=== PATIENT | male | born 1945 | race Caucasian/White ===

== ENCOUNTER 2018-04-05 15:42 | Emergency (ER) | payer MEDICARE, BC ==
--- NOTE | 2018-04-05 16:56 | EDM.PDOC ---
ED HPI GENERAL MEDICAL PROBLEM - General Chief Complaint: ENT Problem Stated Complaint: BLOODY NOSE POST NASAL SURGURY Time Seen by Provider: 04/05/18 16:36 Source of Information: Reports: Patient, Family, RN Notes Reviewed History Limitations: Reports: No Limitations - History of Present Illness INITIAL COMMENTS - FREE TEXT/NARRATIVE: Complaint of bloody nose he recently underwent sinus surgery today was instructed by his ear nose and throat not to blow his nose for the next 2 weeks. This gentleman has felt lightheaded and bleeding has clotted off he does have large hematoma both nostrils and the back of the throat - Related Data Allergies Allergy/AdvReac Type Severity Reaction Status Date / Time amlodipine [From Norvasc] Allergy Itching Verified 04/05/18 16:10 diltiazem [From Cardizem] Allergy Itching Verified 04/05/18 16:10 dopamine Allergy Renal Verified 04/05/18 16:10 Failure nifedipine Allergy Itching Verified 04/05/18 16:10 Sulfa (Sulfonamide Allergy Itching Verified 04/05/18 16:10 Antibiotics) Home Meds: Home Meds Aspirin 325 mg PO DAILY 04/28/16 [History] Cholecalciferol (Vitamin D3) [Vitamin D3] 1,000 unit PO DAILY 04/28/16 [History] Mycophenolate Mofetil [Cellcept] 1,500 mg PO BID 04/28/16 [History] Naproxen 500 mg PO DAILY 04/28/16 [History] [place]-3 Fatty Acids/Fish Oil [Fish Oil 1,000 mg Softgel] 1,000 mg PO DAILY 04/28 [History] Pyridoxine HCl 100 mg PO TID 04/28/16 [History] Simvastatin [Zocor] 80 mg PO BEDTIME 04/28/16 [History] Past Medical History HEENT History: Reports: Hard of Hearing, Impaired Vision, Sinusitis Cardiovascular History: Reports: Bypass, CAD, High Cholesterol, [place], SOB on Exertion Respiratory History: Reports: Other (See Below) Other Respiratory History: scleroderma Gastrointestinal History: Reports: Colon Polyp, GERD, Hemorrhoids Genitourinary History: Reports: Prostate Disorder Musculoskeletal History: Reports: Arthritis Neurological History: Reports: CVA, TIA Dermatologic History: Reports: Scleroderma - Past Surgical History HEENT Surgical History: Reports: Tonsillectomy, Other (See Below) Cardiovascular Surgical History: Reports: Carotid Endarterectomy, Coronary Artery Bypass GI Surgical History: Reports: Appendectomy, Hernia Repair/Other Neurological Surgical History: Reports: None Musculoskeletal Surgical History: Reports: Other (See Below) Other Musculoskeletal Surgeries/Procedures:: calcium deposit taken off right heel Oncologic Surgical History: Reports: None Dermatological Surgical History: Reports: None Social & Family History - Family History Family Medical History: Noncontributory - Tobacco Use Smoking Status *Q: Never Smoker - Caffeine Use Caffeine Use: Reports: Coffee - Recreational Drug Use Recreational Drug Use: No ED ROS ENT - Review of Systems Review Of Systems: See Below Constitutional: Reports: No Symptoms HEENT: Reports: Nosebleed Cardiovascular: Reports: Lightheadedness ED EXAM, ENT - Physical Exam Exam: See Below Text/Narrative:: Initial examination of the ear nose and throat revealed large clots both nares and back of the throat no active bleeding at the time did use a Yankauer removed large clot from the back of throat also had him blow his nose large clots removed from the both nares. No active bleeding at that time a nose clamp was placed Exam Limited By: No Limitations General Appearance: Alert, WD/WN, No Apparent Distress Course - Vital Signs Last Recorded V/S: Last Vital Signs Temp 95.7 F 04/05/18 16:03 Pulse 16 L 04/05/18 17:07 Resp 16 04/05/18 16:23 BP 127/78 04/05/18 17:07 Pulse Ox 91 L 04/05/18 17:07 - Orders/Labs/Meds Labs: Laboratory Tests 04/05/18 Range/Units 17:06 Hgb 14.9 (12.0-15.0) g/dL Meds: Medications Discontinued Medications Generic Name Dose Route Start Last Admin Trade Name Freq PRN Reason Stop Dose Admin Oxymetazoline HCl 1 ml 04/05/18 17:25 Afrin Original 0.05% Nasal [place] CHONG 04/05/18 17:26 ONETIME ONE Departure - Departure Time of Disposition: 17:35 Disposition: Home, Self-Care 01 Condition: Good Clinical Impression: Epistaxis - Discharge Information Referrals: PCP,None [Primary Care Provider] - Forms: ED Department Discharge Additional Instructions: Use Afrin as needed, keep your follow-up appointment with. Nose and throat, call return to the emergency department worsening of symptoms - Assessment/Plan Plan: Assessment Acuity = acute Site and laterality = epistasis Etiology = secondary to recent sinus surgery Manifestations = none Location of injury = Home Lab values = hemoglobin stable at 14.9 Plan After having him blow his nose and remove all the clots and the bleeding stopped , he was sent home with Afrin to use as needed he has a follow-up with his ENT in 2 weeks This note was dictated using [employer] voice recognition software please call with any questions on syntax or grammar.
[2018-04-05 17:07] VITALS: BP 127/78
[2018-04-05] MEDS ORDERED: Oxymetazoline 0.05% Nasal Spray 15 ML Bottle NAS ONE (17:25)
== END 2018-04-05 17:42 | disposition home or self-care (01) ==
LOC: JP.ED 15:42
DX: R04.0 Epistaxis (principal); E78.00 Pure hypercholesterolemia, unspecified; I25.810 Atherosclerosis of coronary artery bypass graft(s) without angina pectoris; Z86.73 Personal history of transient ischemic attack (TIA), and cerebral infarction without residual deficits; Z88.8 Allergy status to other drugs, medicaments and biological substances; Z79.82 Long term (current) use of aspirin; Z79.899 Other long term (current) drug therapy; Z95.1 Presence of aortocoronary bypass graft
CPT/HCPCS: 36415; 85018; 99284; A9270

== ENCOUNTER 2019-02-12 18:51 | Inpatient (IN) | payer MEDICARE, BC ==
[2019-02-12] MEDS ORDERED: Sodium Chloride 0.9% 10 ML Syringe FLUSH PRN ×2 (19:46→22:22)
[2019-02-12] MEDS ORDERED: Sodium Chloride 0.9% 1,000 ML IV ONE ×2 (19:48→20:02)
--- NOTE | 2019-02-12 19:49 | EDM.PDOC ---
ED HPI GENERAL MEDICAL PROBLEM - General Chief Complaint: Respiratory Problem Stated Complaint: SOB, AND RIGHT SIDE PAIN Time Seen by Provider: 02/12/19 19:40 Source of Information: Reports: Patient, Family History Limitations: Reports: No Limitations - History of Present Illness INITIAL COMMENTS - FREE TEXT/NARRATIVE: Kendrick is a 73 year old male, hx of scleroderma on home oxygen PRN, presents to the ED today with his with a 2 day hx of increasing weakness, sob, productive cough and right sided rib pain with coughing. Patient denies any known fever but has felt hot then chilled. Patient has been using his home oxygen more than normal the last two days as well, noted some hemoptysis today. Reports secondary to his scleroderma he has 50% lung capacity, he does not use inhalers or nebulizers as he reports that these are ineffective for him. Has not been on steroids recently, any activity makes his symptoms worse. Hx of double bypass with carotid endarterectomy. Denies any current chest pain besides the rib pain related to coughing. No recent travel. Onset: Gradual Duration: Day(s): (2) denies pain Pain Score (Numeric/FACES): 0 - Related Data Allergies Allergy/AdvReac Type Severity Reaction Status Date / Time amlodipine [From Norvasc] Allergy Itching Verified 02/12/19 19:51 diltiazem [From Cardizem] Allergy Itching Verified 02/12/19 19:51 dopamine Allergy Renal Verified 02/12/19 19:51 Failure nifedipine Allergy Itching Verified 02/12/19 19:51 Sulfa (Sulfonamide Allergy Itching Verified 02/12/19 19:51 Antibiotics) Home Meds: Home Meds Aspirin 325 mg PO DAILY 04/28/16 [History] Cholecalciferol (Vitamin D3) [Vitamin D3] 1,000 unit PO DAILY 04/28/16 [History] Mycophenolate Mofetil [Cellcept] 1,500 mg PO BID 04/28/16 [History] Naproxen 500 mg PO BID 04/28/16 [History] [place]-3 Fatty Acids/Fish Oil [Fish Oil 1,000 mg Softgel] 1,000 mg PO DAILY 04/28 [History] Pyridoxine HCl (Vitamin B6) [Pyridoxine HCl] 100 mg PO DAILY 04/28/16 [History] Simvastatin [Zocor] 20 mg PO BEDTIME 04/28/16 [History] Citalopram [Citalopram HBr] 20 mg PO DAILY 02/12/19 [History] Cyclobenzaprine HCl 10 mg PO BEDTIME 02/12/19 [History] Diclofenac Sodium [Voltaren] 1 applic TOP ASDIRECTED PRN 02/12/19 [History] Fluticasone Propionate [Flonase Allergy Relief] 2 sprays NS DAILY 02/12/19 [ History] Ipratropium [Atrovent 0.06% Nasal [place]] 2 sprays NS BEDTIME 02/12/19 [History] Nitroglycerin [Nitro-Bid 2%] 1 inch TOP BID 02/12/19 [History] Omeprazole 20 mg PO ASDIRECTED 02/12/19 [History] Tamsulosin HCl [Flomax] 0.4 mg PO DAILY 02/12/19 [History] Past Medical History HEENT History: Reports: Hard of Hearing, Impaired Vision, Sinusitis Cardiovascular History: Reports: Bypass, CAD, High Cholesterol, [place], SOB on Exertion Respiratory History: Reports: Other (See Below) Other Respiratory History: scleroderma Gastrointestinal History: Reports: Colon Polyp, GERD, Hemorrhoids Genitourinary History: Reports: Prostate Disorder Musculoskeletal History: Reports: Arthritis Neurological History: Reports: CVA, TIA Psychiatric History: Reports: None Endocrine/Metabolic History: Reports: None Hematologic History: Reports: None Immunologic History: Reports: None Oncologic (Cancer) History: Reports: None Dermatologic History: Reports: Scleroderma - Past Surgical History HEENT Surgical History: Reports: Tonsillectomy, Other (See Below) Cardiovascular Surgical History: Reports: Carotid Endarterectomy, Coronary Artery Bypass GI Surgical History: Reports: Appendectomy, Hernia Repair/Other Neurological Surgical History: Reports: None Musculoskeletal Surgical History: Reports: Other (See Below) Other Musculoskeletal Surgeries/Procedures:: calcium deposit taken off right heel Oncologic Surgical History: Reports: None Dermatological Surgical History: Reports: None Social & Family History - Family History Family Medical History: Noncontributory - Caffeine Use Caffeine Use: Reports: Coffee ED ROS GENERAL - Review of Systems Review Of Systems: ROS reveals no pertinent complaints other than HPI. ED EXAM, GENERAL - Physical Exam Exam: See Below Exam Limited By: No Limitations General Appearance: Alert, WD/WN Respiratory/Chest: Chest Non-Tender, Respiratory Distress (Mild), Rhonchi ( bilateral bases) Cardiovascular: No Murmur, Tachycardia, Other (PAC's) Peripheral Pulses: 2+: Radial (L), Radial (R) GI/Abdominal: Normal Bowel Sounds, Soft, Non-Tender Skin Exam: Warm, Dry, Cool, Cyanosis (upon room entry, jerome-oral, resolved with supplemental oxygen, poor pulse ox levels likely secondary to Raynaud's hx) Lymphatic: No Adenopathy EKG INTERPRETATION EKG Date: 02/12/19 Time: 19:45 Rhythm: Other (Sinus Tachycardia) [place]: Normal P-Wave: Present QRS: Normal ST-T: Normal Comparison: NA - No Prior EKG EKG Interpretation Comments: PAC's, old anterior infarct. Course - Vital Signs Last Recorded V/S: Last Vital Signs Temp 37.7 C 02/12/19 21:16 Pulse 130 H 02/12/19 21:16 Resp 16 02/12/19 21:16 BP 129/37 L 02/12/19 21:16 Pulse Ox 90 L 02/12/19 21:16 Kendrick is a 73 year old male, hx of scleroderma, on PRN oxygen, presents to the ED today with his with a 2 day hx of increasing productive cough, generalized weakness, fever/chills subjective. Patient tachycardic with soft blood pressure here. Patient is afebrile. Patient has not been on antibiotics or steroids recently. Patient initially with jerome-oral cyanosis on arrival, improved with supplemental oxygen here. Concern for pneumonia given history and exam findings. Patient does have cardiac hx but given his lack of peripheral edema I do not think that this is CHF related. PIV established x 2, started on 2 liters NS. Blood work obtained including VBG and Blood cultures. WBC returned with white count of 17.1, left shift, VBG with pCO2 of 46, pH of 7.4 and bicarb of 28. CMP returns with gap of 15.5, creatinine of 1.4, lactic acid of 3.2. EKG with a sinus tachycardia, troponin undetectable. Procalcitonin of just under 11. Patient started on Zosyn for sepsis. Pro BNP of 6455. CXR concerning for large RLL and RML infiltrate, compared to xray 6 years prior that would be new but hard to differentiate between that and scleroderma. Patient's blood pressure continued to decline here down to 80 systolic, he remains alert and oriented, initiated on Levophed drip. Patient updated on exam findings and plan of care as well as his , they are agreeable to plan of care. Patient discussed with our hospitalist, Dr. Mccann who has accepted patient for admission. Patient admitted in serious condition. - Orders/Labs/Meds Orders: Active Orders 24 hr Category Date Time Status Patient Status Manage Transfer [TRANSFER] Routine ADT 02/12/19 20:53 Active EKG Documentation Completion [RC] ASDIRECTED Care 02/12/19 19:46 Active Peripheral IV Care [RC] . DIRECTED Care 02/12/19 19:46 Active CULTURE BLOOD [BC] Urgent Lab 02/12/19 20:05 Received CULTURE BLOOD [BC] Urgent Lab 02/12/19 20:10 Received Norepinephrine [Levophed] 4 mg Med 02/12/19 20:45 Active Dextrose 5% in Water 246 ml IV TITRATE Sodium Chloride 0.9% [Saline Flush] Med 02/12/19 19:46 Active 10 ml FLUSH ASDIRECTED PRN Blood Culture x2 Reflex Set [OM.PC] Urgent Oth 02/12/19 20:01 Ordered Peripheral IV Insertion Adult [OM.PC] Routine Oth 02/12/19 19:46 Ordered Resuscitation Status Routine Resus Stat 02/12/19 21:00 Ordered EKG 12 Lead [EK] Stat Ther 02/12/19 19:46 Ordered Medication Orders Norepinephrine Bitartrate 4 mg (/ Dextrose/Water) 250 mls @ 7.5 mls/hr IV TITRATE AUDREY; Protocol Last Admin: 02/12/19 20:55 Dose: 2 mcg/min, 7.5 mls/hr Sodium Chloride (Saline Flush) 10 ml FLUSH ASDIRECTED PRN PRN Reason: Keep Vein Open Last Admin: 02/12/19 20:41 Dose: 10 ml Labs: Laboratory Tests 02/12/19 02/12/19 02/12/19 Range/Units 19:54 19:54 19:54 WBC 17.7 H (4.5-11.0) K/uL RBC 5.04 (4.30-5.90) M/uL Hgb 14.8 (12.0-15.0) g/dL Hct 46.8 (40.0-54.0) % MCV 93 (80-98) fL MCH 29 (27-31) pg MCHC 32 (32-36) % Plt Count 171 (150-400) K/uL Add Manual Diff Yes Neutrophils % (Manual) 83 H (36-66) % Band Neutrophils % 10 (5-11) % Monocytes % (Manual) 4 (2-6) % Blast Cells % 3 % ABG Hemoglobin 15.4 (13.5-18.0) g/dL ABG Oxyhemoglobin 49.9 % ABG Carboxyhemoglobin 1.8 H (0.0-1.6) % ABG Methemoglobin 0.7 % VBG pH 7.403 (7.350-7.450) VBG pCO2 46.1 mm/Hg VBG pO2 28.4 mm/Hg VBG HCO3 28.2 mmol/L VBG Total CO2 24.7 mmol/L VBG O2 Saturation 51.2 VBG O2 Content 10.8 %vol VBG Base Excess 3.2 mm/L O2 Delivery Device Nasal cannula Sodium 135 L (140-148) mmol/L Potassium 4.5 (3.6-5.2) mmol/L Chloride 97 L (100-108) mmol/L Carbon Dioxide 27 (21-32) mmol/L Anion Gap 15.5 H (5.0-14.0) mmol/L BUN 22 H (7-18) mg/dL Creatinine 1.4 H (0.8-1.3) mg/dL Est Cr Clr Drug Dosing 43.45 mL/min Estimated GFR (MDRD) 50 L (>60) Glucose 98 (74-106) mg/dL Lactic Acid (0.4-2.0) mmol/L Calcium 9.8 (8.5-10.1) mg/dL Total Bilirubin 0.7 (0.2-1.0) mg/dL AST 18 (15-37) U/L ALT 16 (12-78) U/L Alkaline Phosphatase 86 (46-116) U/L Troponin I (0.000-0.056) ng/mL NT-Pro-B Natriuret Pep (5-125) pg/mL Total Protein 6.2 L (6.4-8.2) g/dL Albumin 2.8 L (3.4-5.0) g/dL Globulin 3.4 (2.3-3.5) g/dL Albumin/Globulin Ratio 0.8 L (1.2-2.2) Procalcitonin ng/mL 02/12/19 02/12/19 02/12/19 Range/Units 19:54 19:54 20:00 WBC (4.5-11.0) K/uL RBC (4.30-5.90) M/uL Hgb (12.0-15.0) g/dL Hct (40.0-54.0) % MCV (80-98) fL MCH (27-31) pg MCHC (32-36) % Plt Count (150-400) K/uL Add Manual Diff Neutrophils % (Manual) (36-66) % Band Neutrophils % (5-11) % Monocytes % (Manual) (2-6) % Blast Cells % % ABG Hemoglobin (13.5-18.0) g/dL ABG Oxyhemoglobin % ABG Carboxyhemoglobin (0.0-1.6) % ABG Methemoglobin % VBG pH (7.350-7.450) VBG pCO2 mm/Hg VBG pO2 mm/Hg VBG HCO3 mmol/L VBG Total CO2 mmol/L VBG O2 Saturation VBG O2 Content %vol VBG Base Excess mm/L O2 Delivery Device Sodium (140-148) mmol/L Potassium (3.6-5.2) mmol/L Chloride (100-108) mmol/L Carbon Dioxide (21-32) mmol/L Anion Gap (5.0-14.0) mmol/L BUN (7-18) mg/dL Creatinine (0.8-1.3) mg/dL Est Cr Clr Drug Dosing mL/min Estimated GFR (MDRD) (>60) Glucose (74-106) mg/dL Lactic Acid 3.2 H (0.4-2.0) mmol/L Calcium (8.5-10.1) mg/dL Total Bilirubin (0.2-1.0) mg/dL AST (15-37) U/L ALT (12-78) U/L Alkaline Phosphatase (46-116) U/L Troponin I < 0.017 (0.000-0.056) ng/mL NT-Pro-B Natriuret Pep 6455 H (5-125) pg/mL Total Protein (6.4-8.2) g/dL Albumin (3.4-5.0) g/dL Globulin (2.3-3.5) g/dL Albumin/Globulin Ratio (1.2-2.2) Procalcitonin 10.86 H* ng/mL Meds: Medications Generic Name Dose Route Start Last Admin Trade Name Freq PRN Reason Stop Dose Admin Norepinephrine Bitartrate 4 mg 250 mls @ 7.5 mls/hr 02/12/19 20:45 02/12/19 20:55 / Dextrose/Water IV 2 mcg/min TITRATE AUDREY 7.5 mls/hr Administration Protocol 2 MCG/MIN Sodium Chloride 10 ml 02/12/19 19:46 02/12/19 20:41 Saline Flush FLUSH 10 ml ASDIRECTED PRN Administration Keep Vein Open Discontinued Medications Generic Name Dose Route Start Last Admin Trade Name Freq PRN Reason Stop Dose Admin Sodium Chloride 1,000 mls @ 999 mls/hr 02/12/19 19:48 02/12/19 20:15 Normal Saline IV 02/12/19 20:48 999 mls/hr .BOLUS ONE Administration Sodium Chloride 1,000 mls @ 999 mls/hr 02/12/19 20:02 02/12/19 20:35 Normal Saline IV 02/12/19 21:02 999 mls/hr .BOLUS ONE Administration Piperacillin Sod/Tazobactam 100 mls @ 100 mls/hr 02/12/19 20:05 02/12/19 20: 37 Sod 4.5 gm/ Sodium Chloride IV 02/12/19 21:04 100 mls/hr ONETIME ONE Administration Methylprednisolone Sodium Succinate 62.5 mg 02/12/19 20:04 02/12/19 20:38 Solu-Medrol IVPUSH 02/12/19 20:05 62.5 mg ONETIME ONE Administration Departure - Departure Time of Disposition: 22:30 Disposition: Admitted As Inpatient 67 Clinical Impression: Sepsis associated hypotension Sepsis Qualifiers: Sepsis type: sepsis due to unspecified organism Qualified Code(s): A41.9 - Sepsis, unspecified organism Pneumonia Qualifiers: Pneumonia type: due to unspecified organism Laterality: right Lung location: lower lobe of lung Qualified Code(s): J18.1 - Lobar pneumonia, unspecified organism - Discharge Information Referrals: Raji Mcgarry MD [Primary Care Provider] - Forms: ED Department Discharge - My Orders Last 24 Hours: My Active Orders 02/12/19 19:46 EKG Documentation Completion [RC] ASDIRECTED Peripheral IV Care [RC] . DIRECTED Sodium Chloride 0.9% [Saline Flush] 10 ml FLUSH ASDIRECTED PRN Peripheral IV Insertion Adult [OM.PC] Routine EKG 12 Lead [EK] Stat 02/12/19 20:01 Blood Culture x2 Reflex Set [OM.PC] Urgent 02/12/19 20:05 CULTURE BLOOD [BC] Urgent 02/12/19 20:10 CULTURE BLOOD [BC] Urgent 02/12/19 20:45 Norepinephrine [Levophed] 4 mg Dextrose 5% in Water 246 ml IV TITRATE - Assessment/Plan Last 24 Hours: My Active Orders 02/12/19 19:46 EKG Documentation Completion [RC] ASDIRECTED Peripheral IV Care [RC] . DIRECTED Sodium Chloride 0.9% [Saline Flush] 10 ml FLUSH ASDIRECTED PRN Peripheral IV Insertion Adult [OM.PC] Routine EKG 12 Lead [EK] Stat 02/12/19 20:01 Blood Culture x2 Reflex Set [OM.PC] Urgent 02/12/19 20:05 CULTURE BLOOD [BC] Urgent 02/12/19 20:10 CULTURE BLOOD [BC] Urgent 02/12/19 20:45 Norepinephrine [Levophed] 4 mg Dextrose 5% in Water 246 ml IV TITRATE
[2019-02-12] MEDS ORDERED: methylPREDNISolone Sodium Succinate 125 MG/2 ML SDV IVPUSH ONE (20:04)
[2019-02-12] MEDS ORDERED: Piperacillin/Tazobactam 4.5 GM in Sodium Chloride 0.9% 100 ML IV ONE (20:05)
[2019-02-12] MEDS ORDERED: Norepinephrine 4 MG in Dextrose 5% in Water 246 ML IV SCH ×4 (20:45→22:22)
--- NOTE | 2019-02-12 21:18 | CRLCR ---
Indication: SOB. Cough Technique: Chest 1 view Comparison: 07/27/2012 Findings/Impression: Cardiovascular and mediastinum: Stable cardiomediastinal silhouette. Sternotomy sutures. Lungs and pleural space: An ill-defined opacity in the right mid and lower lung compatible with pneumonia. Apparent minor left basilar subsegmental atelectasis. No pleural effusions seen. Correlate clinically and follow-up to document resolution. Bones and soft tissues: Ovoid calcifications adjacent to the proximal humeri which could represent calcified lymph nodes. Possible loose intra-articular bodies inferior to the glenoids. Dictated by Marc Sihn MD @ 02/12/2019 9:17:48 PM Dictated by: Marc Shin MD @ 02/12/2019 21:17:52 (Electronically Signed)
--- NOTE | 2019-02-12 21:44 | PCM.HP ---
H&P History of Present Illness - General Date of Service: 02/12/19 Admit Problem/Dx: Admission Diagnosis/Problem Admission Diagnosis/Problem Pneumonia Source of Information: Patient, Family, Provider, RN Notes Reviewed History Limitations: Reports: No Limitations - History of Present Illness Initial Comments - Free Text/Narative: Wednesday is a 73-year-old gentleman who was admitted through the emergency department with shortness of breath and cough secondary to pneumonia with sepsis and hypoxia. 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 He is currently on CellCept further scleroderma lung disease and does use oxygen intermittently at home. He's been using more oxygen this past week because the humidity and especially over the past few days when he is become even more short of breath with cough and fever. On evaluation in the emergency department is felt to be septic with hypotension tachycardia modest elevation in lactic acid level. White blood cell count is elevated and chest x-ray shows evidence of a right lung infiltrate. denies pain Pain Score (Numeric/FACES): 0 - Related Data Allergies/Adverse Reactions: Allergies Allergy/AdvReac Type Severity Reaction Status Date / Time amlodipine [From Norvasc] Allergy Itching Verified 02/12/19 19:51 diltiazem [From Cardizem] Allergy Itching Verified 02/12/19 19:51 dopamine Allergy Renal Verified 02/12/19 19:51 Failure nifedipine Allergy Itching Verified 02/12/19 19:51 Sulfa (Sulfonamide Allergy Itching Verified 02/12/19 19:51 Antibiotics) Home Medications: Home Meds Aspirin 325 mg PO DAILY 04/28/16 [History] Cholecalciferol (Vitamin D3) [Vitamin D3] 1,000 unit PO DAILY 04/28/16 [History] Mycophenolate Mofetil [Cellcept] 1,500 mg PO BID 04/28/16 [History] Naproxen 500 mg PO BID 04/28/16 [History] [place]-3 Fatty Acids/Fish Oil [Fish Oil 1,000 mg Softgel] 1,000 mg PO DAILY 04/28 [History] Pyridoxine HCl (Vitamin B6) [Pyridoxine HCl] 100 mg PO DAILY 04/28/16 [History] Simvastatin [Zocor] 20 mg PO BEDTIME 04/28/16 [History] Citalopram [Citalopram HBr] 20 mg PO DAILY 02/12/19 [History] Cyclobenzaprine HCl 10 mg PO BEDTIME 02/12/19 [History] Diclofenac Sodium [Voltaren] 1 applic TOP ASDIRECTED PRN 02/12/19 [History] Fluticasone Propionate [Flonase Allergy Relief] 2 sprays NS DAILY 02/12/19 [ History] Ipratropium [Atrovent 0.06% Nasal [place]] 2 sprays NS BEDTIME 02/12/19 [History] Nitroglycerin [Nitro-Bid 2%] 1 inch TOP BID 02/12/19 [History] Omeprazole 20 mg PO ASDIRECTED 02/12/19 [History] Tamsulosin HCl [Flomax] 0.4 mg PO DAILY 02/12/19 [History] Past Medical History HEENT History: Reports: Hard of Hearing, Impaired Vision, Sinusitis Cardiovascular History: Reports: Bypass, CAD, High Cholesterol, CA, SOB on Exertion Respiratory History: Reports: Other (See Below) Other Respiratory History: scleroderma Gastrointestinal History: Reports: Colon Polyp, GERD, Hemorrhoids Genitourinary History: Reports: Prostate Disorder Musculoskeletal History: Reports: Arthritis Neurological History: Reports: CVA, TIA Psychiatric History: Reports: None Endocrine/Metabolic History: Reports: None Hematologic History: Reports: None Immunologic History: Reports: None Oncologic (Cancer) History: Reports: None Dermatologic History: Reports: Scleroderma - Past Surgical History HEENT Surgical History: Reports: Tonsillectomy, Other (See Below) Cardiovascular Surgical History: Reports: Carotid Endarterectomy, Coronary Artery Bypass GI Surgical History: Reports: Appendectomy, Hernia Repair/Other Neurological Surgical History: Reports: None Musculoskeletal Surgical History: Reports: Other (See Below) Other Musculoskeletal Surgeries/Procedures:: calcium deposit taken off right heel Oncologic Surgical History: Reports: None Dermatological Surgical History: Reports: None Social & Family History - Family History Family Medical History: Noncontributory - Tobacco Use Smoking Status *Q: Never Smoker - Caffeine Use Caffeine Use: Reports: Coffee - Recreational Drug Use Recreational Drug Use: No H&P Review of Systems - Review of Systems: Review Of Systems: See Below General: Reports: Fever, Chills, Malaise, Weakness, Fatigue, Diaphoresis, Decreased Appetite HEENT: Reports: No Symptoms Pulmonary: Reports: Shortness of Breath, Wheezing, Cough, Sputum, Hemoptysis. Denies: Pleuritic Chest Pain Cardiovascular: Reports: Dyspnea on Exertion. Denies: Chest Pain, Palpitations , Orthopnea, PND, Edema, Lightheadedness, Syncope Gastrointestinal: Reports: Nausea, Vomiting. Denies: Abdominal Pain, Black Stool, Bloody Stool, Constipation, Diarrhea, Difficulty Swallowing, Distension Genitourinary: Reports: No Symptoms Musculoskeletal: Reports: No Symptoms Skin: Reports: No Symptoms Psychiatric: Reports: No Symptoms Neurological: Reports: No Symptoms Hematologic/Lymphatic: Reports: No Symptoms Immunologic: Reports: No Symptoms Exam - Exam Exam: See Below - Vital Signs Vital Signs: Last Vital Signs Temp 99.9 F 02/12/19 21:16 Pulse 130 H 02/12/19 21:16 Resp 16 02/12/19 21:16 BP 129/37 L 02/12/19 21:16 Pulse Ox 90 L 02/12/19 21:16 Weight: 142 lb - Exam Quality Assessment: DVT Prophylaxis General: Alert, Oriented, Cooperative, Moderate Distress HEENT: Conjunctiva Clear, Hearing Intact, Normal Nasal Septum, Posterior Pharynx Clear, Pupils Equal. No: Mucosa Moist & [place] Neck: Supple, Trachea Midline, +2 Carotid Pulse wo Bruit Lungs: Crackles, Rhonchi, Wheezing. No: Rales, Rub, Stridor Cardiovascular: Regular Rhythm, Normal S1, Normal S2, Tachycardia. No: Systolic Murmur, Diastolic Murmur GI/Abdominal Exam: Soft, Non-Tender, No Organomegaly, No Distention Back Exam: Normal Inspection, Full Range of Motion Extremities: Non-Tender, No Pedal Edema Skin: Warm, Dry, Intact Neurological: Cranial Nerves Intact, Strength Equal Bilateral, Normal Speech, Normal Tone, Sensation Intact. No: Focal Deficit Neuro Extensive - Mental Status: Alert, Oriented x3, Normal Mood/Affect, Normal Cognition, Memory Intact - Patient Data Lab Results Last 24 hrs: Laboratory Results - last 24 hr 02/12/19 02/12/19 02/12/19 Range/Units 19:54 19:54 19:54 WBC 17.7 H (4.5-11.0) K/uL RBC 5.04 (4.30-5.90) M/uL Hgb 14.8 (12.0-15.0) g/dL Hct 46.8 (40.0-54.0) % MCV 93 (80-98) fL MCH 29 (27-31) pg MCHC 32 (32-36) % Plt Count 171 (150-400) K/uL Add Manual Diff Yes Neutrophils % (Manual) 83 H (36-66) % Band Neutrophils % 10 (5-11) % Monocytes % (Manual) 4 (2-6) % Blast Cells % 3 % ABG Hemoglobin 15.4 (13.5-18.0) g/dL ABG Oxyhemoglobin 49.9 % ABG Carboxyhemoglobin 1.8 H (0.0-1.6) % ABG Methemoglobin 0.7 % VBG pH 7.403 (7.350-7.450) VBG pCO2 46.1 mm/Hg VBG pO2 28.4 mm/Hg VBG HCO3 28.2 mmol/L VBG Total CO2 24.7 mmol/L VBG O2 Saturation 51.2 VBG O2 Content 10.8 %vol VBG Base Excess 3.2 mm/L O2 Delivery Device Nasal cannula Sodium 135 L (140-148) mmol/L Potassium 4.5 (3.6-5.2) mmol/L Chloride 97 L (100-108) mmol/L Carbon Dioxide 27 (21-32) mmol/L Anion Gap 15.5 H (5.0-14.0) mmol/L BUN 22 H (7-18) mg/dL Creatinine 1.4 H (0.8-1.3) mg/dL Est Cr Clr Drug Dosing 43.45 mL/min Estimated GFR (MDRD) 50 L (>60) Glucose 98 (74-106) mg/dL Lactic Acid (0.4-2.0) mmol/L Calcium 9.8 (8.5-10.1) mg/dL Total Bilirubin 0.7 (0.2-1.0) mg/dL AST 18 (15-37) U/L ALT 16 (12-78) U/L Alkaline Phosphatase 86 (46-116) U/L Troponin I (0.000-0.056) ng/mL NT-Pro-B Natriuret Pep (5-125) pg/mL Total Protein 6.2 L (6.4-8.2) g/dL Albumin 2.8 L (3.4-5.0) g/dL Globulin 3.4 (2.3-3.5) g/dL Albumin/Globulin Ratio 0.8 L (1.2-2.2) Procalcitonin ng/mL 02/12/19 02/12/19 02/12/19 Range/Units 19:54 19:54 20:00 WBC (4.5-11.0) K/uL RBC (4.30-5.90) M/uL Hgb (12.0-15.0) g/dL Hct (40.0-54.0) % MCV (80-98) fL MCH (27-31) pg MCHC (32-36) % Plt Count (150-400) K/uL Add Manual Diff Neutrophils % (Manual) (36-66) % Band Neutrophils % (5-11) % Monocytes % (Manual) (2-6) % Blast Cells % % ABG Hemoglobin (13.5-18.0) g/dL ABG Oxyhemoglobin % ABG Carboxyhemoglobin (0.0-1.6) % ABG Methemoglobin % VBG pH (7.350-7.450) VBG pCO2 mm/Hg VBG pO2 mm/Hg VBG HCO3 mmol/L VBG Total CO2 mmol/L VBG O2 Saturation VBG O2 Content %vol VBG Base Excess mm/L O2 Delivery Device Sodium (140-148) mmol/L Potassium (3.6-5.2) mmol/L Chloride (100-108) mmol/L Carbon Dioxide (21-32) mmol/L Anion Gap (5.0-14.0) mmol/L BUN (7-18) mg/dL Creatinine (0.8-1.3) mg/dL Est Cr Clr Drug Dosing mL/min Estimated GFR (MDRD) (>60) Glucose (74-106) mg/dL Lactic Acid 3.2 H (0.4-2.0) mmol/L Calcium (8.5-10.1) mg/dL Total Bilirubin (0.2-1.0) mg/dL AST (15-37) U/L ALT (12-78) U/L Alkaline Phosphatase (46-116) U/L Troponin I < 0.017 (0.000-0.056) ng/mL NT-Pro-B Natriuret Pep 6455 H (5-125) pg/mL Total Protein (6.4-8.2) g/dL Albumin (3.4-5.0) g/dL Globulin (2.3-3.5) g/dL Albumin/Globulin Ratio (1.2-2.2) Procalcitonin 10.86 H* ng/mL Result Diagrams: 02/12/19 19:54 02/12/19 19:54 *Q Meaningful Use (ADM) - VTE Risk Assess *Q Each Risk Factor Represents 1 Point: Sepsis, Serious lung disease including pneumonia Total Score 1 Point Risk Factors: 2 Each Risk Factor Represents 2 Points: Age 60 - 74 Years Total Score 2 Point Risk Factors: 2 Each Risk Factor Represents 3 Points: None Total Score 3 Point Risk Factors: 0 Each Risk Factor Represents 5 Points: None Total Score 5 Point Risk Factors: 0 Venous Thromboembolism Risk Factor Score *Q: 4 Problem List Initiated/Reviewed/Updated: Yes Orders Last 24hrs: Active Orders 24 hr Category Date Time Status Patient Status Manage Transfer [TRANSFER] Routine ADT 02/12/19 20:53 Active EKG Documentation Completion [RC] ASDIRECTED Care 02/12/19 19:46 Active Peripheral IV Care [RC] . DIRECTED Care 02/12/19 19:46 Active CULTURE BLOOD [BC] Urgent Lab 02/12/19 20:05 Received CULTURE BLOOD [BC] Urgent Lab 02/12/19 20:10 Received Norepinephrine [Levophed] 4 mg Med 02/12/19 20:45 Active Dextrose 5% in Water 246 ml IV TITRATE Sodium Chloride 0.9% [Saline Flush] Med 02/12/19 19:46 Active 10 ml FLUSH ASDIRECTED PRN Blood Culture x2 Reflex Set [OM.PC] Urgent Oth 02/12/19 20:01 Ordered Peripheral IV Insertion Adult [OM.PC] Routine Oth 02/12/19 19:46 Ordered Resuscitation Status Routine Resus Stat 02/12/19 21:00 Ordered EKG 12 Lead [EK] Stat Ther 02/12/19 19:46 Ordered Medication Orders Norepinephrine Bitartrate 4 mg (/ Dextrose/Water) 250 mls @ 7.5 mls/hr IV TITRATE [facility]; Protocol Last Admin: 02/12/19 20:55 Dose: 2 mcg/min, 7.5 mls/hr Sodium Chloride (Saline Flush) 10 ml FLUSH ASDIRECTED PRN PRN Reason: Keep Vein Open Last Admin: 02/12/19 20:41 Dose: 10 ml Assessment/Plan Comment:: ASSESSMENT AND PLAN PNEUMONIA WITH SEPSIS-or lying lung disease, fever and cough over the past 36 hours. Tachycardic and hypotensive with modest elevation in lactic acid level. White blood cell count is elevated and chest x-ray shows evidence of a right lung infiltrate. -Blood cultures pending -Currently on norepinephrine for management of hypotension -Complete IV fluid replacement per sepsis protocol -IV Zosyn and levofloxacin pending culture results -Hold CellCept HYPOXIA-secondary to underlying pulmonary fibrosis and pneumonia -Supplemental oxygen as needed -Solu-Medrol 40 mg IV every 6 hours, wheezing noted on exam -Nebulized albuterol and duo nebs SCLERODERMA-with underlying pulmonary fibrosis -Hold CellCept CORONARY ARTERY DISEASE-currently asymptomatic -Continue outpatient medical regimen MAINTENANCE ISSUES -DVT prophylaxis; Lovenox 40 mg subcutaneous daily -GI prophylaxis; not indicated -Kong catheter; not indicated -Nutrition; regular diet -Nicotine dependence; not required CODE STATUS-DNR/DNI ADMISSION STATUS-patient will be admitted to inpatient status, expect at least a 2 night hospital stay for evaluation and management of problems as outlined above. At the time of this admission I do not reasonably expected evaluation and management of this problem will require more than a 96 hour hospital stay. DISPOSITION-anticipate discharge to home after the hospital stay. PRIMARY CARE PROVIDER-Dr. Mcgarry
[2019-02-12] MEDS ORDERED: Albuterol 0.083% 2.5 MG/3 ML Neb Soln NEB PRN (22:22)
[2019-02-12] MEDS ORDERED: Enoxaparin 40 MG/0.4 ML Syringe SUBCUT SCH (22:22)
[2019-02-12] MEDS ORDERED: Acetaminophen 325 MG Tab PO PRN (22:22)
[2019-02-12] MEDS ORDERED: Sodium Chloride 0.9% 1,000 ML IV SCH (22:22)
[2019-02-12] MEDS ORDERED: Piperacillin/Tazobactam 3.375 GM in Sodium Chloride 0.9% 50 ML IV SCH (22:22)
[2019-02-12] MEDS ORDERED: Levofloxacin/Dextrose 5%-Water 750 MG in Premix Bag 1 BAG IV SCH (22:22)
[2019-02-12] MEDS ORDERED: Ondansetron 4 MG/2 ML SDV IV PRN (22:22)
[2019-02-12] MEDS ORDERED: Polyethylene Glycol 3350 Powder 17 GM Packet PO PRN (22:22)
[2019-02-12] MEDS: Simvastatin 20 MG Tab PO SCH (22:50)
[2019-02-12] MEDS: methylPREDNISolone Sodium Succinate 40 MG/1 ML SDV IVPUSH SCH (22:51)
[2019-02-12] MEDS: Albuterol/Ipratropium 3.0-0.5 MG/3 ML Neb Soln NEB SCH (23:29)
[2019-02-12] MEDS: Aspirin 325 MG Tab.EC PO SCH (23:34)
[2019-02-13] MEDS ORDERED: Piperacillin/Tazobactam 3.375 GM in Sodium Chloride 0.9% 50 ML IV SCH (02:00)
[2019-02-13] MEDS: methylPREDNISolone Sodium Succinate 40 MG/1 ML SDV IVPUSH SCH ×4 (04:15→21:40)
[2019-02-13] MEDS: Albuterol/Ipratropium 3.0-0.5 MG/3 ML Neb Soln NEB SCH ×4 (07:02→20:55)
[2019-02-13] MEDS: Aspirin 325 MG Tab.EC PO SCH (08:15)
[2019-02-13] MEDS: Piperacillin/Tazobactam/Dext 3.375 GM in Premix Bag 1 BAG IV SCH ×3 (08:15→20:53)
[2019-02-13] MEDS ORDERED: Cyclobenzaprine 10 MG Tab PO PRN (09:43)
[2019-02-13] MEDS ORDERED: Diclofenac Sodium 1% Gel 100 GM Tube TOP PRN (09:43)
--- NOTE | 2019-02-13 09:47 | PCM.PN ---
- General Info Date of Service: 02/13/19 Subjective Update: Overnight the patient did require norepinephrine and he remains on a low dose this morning. Blood pressures have been stable with this low dose vasopressor. He has less pleuritic chest pain today. He is stable on about 2-1/2 L of supplemental oxygen. He did not have fevers overnight. No complaints of nausea or abdominal pain. Feels weak. He does not have an appetite. He feels the urge to pass urine but has had only small quantities of urine out. Bladder scan revealed only small amounts of urine in the bladder. Functional Status: Reports: Pain Controlled, Tolerating Diet - Review of Systems General: Reports: Weakness Pulmonary: Reports: Shortness of Breath - Patient Data Vitals - Most Recent: Last Vital Signs Temp 35.9 C 02/13/19 07:58 Pulse 94 02/13/19 08:00 Resp 34 H 02/13/19 08:00 BP 97/52 L 02/13/19 08:00 Pulse Ox 93 L 02/13/19 08:00 Weight - Most Recent: 66.179 kg I&O - Last 24 Hours: Intake & Output 02/12/19 02/13/19 02/13/19 22:59 06:59 14:59 Intake Total 1633 240 Output Total 225 Balance 1408 240 Lab Results Last 24 Hours: Laboratory Results - last 24 hr 02/12/19 02/12/19 02/12/19 Range/Units 19:54 19:54 19:54 WBC 17.7 H (4.5-11.0) K/uL RBC 5.04 (4.30-5.90) M/uL Hgb 14.8 (12.0-15.0) g/dL Hct 46.8 (40.0-54.0) % MCV 93 (80-98) fL MCH 29 (27-31) pg MCHC 32 (32-36) % Plt Count 171 (150-400) K/uL Add Manual Diff Yes Neutrophils % (Manual) 83 H (36-66) % Band Neutrophils % 10 (5-11) % Lymphocytes % (Manual) (24-44) % Monocytes % (Manual) 4 (2-6) % Metamyelocytes % % Blast Cells % 3 % ABG Hemoglobin 15.4 (13.5-18.0) g/dL ABG Oxyhemoglobin 49.9 % ABG Carboxyhemoglobin 1.8 H (0.0-1.6) % ABG Methemoglobin 0.7 % VBG pH 7.403 (7.350-7.450) VBG pCO2 46.1 mm/Hg VBG pO2 28.4 mm/Hg VBG HCO3 28.2 mmol/L VBG Total CO2 24.7 mmol/L VBG O2 Saturation 51.2 VBG O2 Content 10.8 %vol VBG Base Excess 3.2 mm/L O2 Delivery Device Nasal cannula Sodium 135 L (140-148) mmol/L Potassium 4.5 (3.6-5.2) mmol/L Chloride 97 L (100-108) mmol/L Carbon Dioxide 27 (21-32) mmol/L Anion Gap 15.5 H (5.0-14.0) mmol/L BUN 22 H (7-18) mg/dL Creatinine 1.4 H (0.8-1.3) mg/dL Est Cr Clr Drug Dosing 43.45 mL/min Estimated GFR (MDRD) 50 L (>60) Glucose 98 (74-106) mg/dL Lactic Acid (0.4-2.0) mmol/L Calcium 9.8 (8.5-10.1) mg/dL Magnesium (1.8-2.4) mg/dL Total Bilirubin 0.7 (0.2-1.0) mg/dL AST 18 (15-37) U/L ALT 16 (12-78) U/L Alkaline Phosphatase 86 (46-116) U/L Troponin I (0.000-0.056) ng/mL NT-Pro-B Natriuret Pep (5-125) pg/mL Total Protein 6.2 L (6.4-8.2) g/dL Albumin 2.8 L (3.4-5.0) g/dL Globulin 3.4 (2.3-3.5) g/dL Albumin/Globulin Ratio 0.8 L (1.2-2.2) Procalcitonin ng/mL 02/12/19 02/12/19 02/12/19 Range/Units 19:54 19:54 20:00 WBC (4.5-11.0) K/uL RBC (4.30-5.90) M/uL Hgb (12.0-15.0) g/dL Hct (40.0-54.0) % MCV (80-98) fL MCH (27-31) pg MCHC (32-36) % Plt Count (150-400) K/uL Add Manual Diff Neutrophils % (Manual) (36-66) % Band Neutrophils % (5-11) % Lymphocytes % (Manual) (24-44) % Monocytes % (Manual) (2-6) % Metamyelocytes % % Blast Cells % % ABG Hemoglobin (13.5-18.0) g/dL ABG Oxyhemoglobin % ABG Carboxyhemoglobin (0.0-1.6) % ABG Methemoglobin % VBG pH (7.350-7.450) VBG pCO2 mm/Hg VBG pO2 mm/Hg VBG HCO3 mmol/L VBG Total CO2 mmol/L VBG O2 Saturation VBG O2 Content %vol VBG Base Excess mm/L O2 Delivery Device Sodium (140-148) mmol/L Potassium (3.6-5.2) mmol/L Chloride (100-108) mmol/L Carbon Dioxide (21-32) mmol/L Anion Gap (5.0-14.0) mmol/L BUN (7-18) mg/dL Creatinine (0.8-1.3) mg/dL Est Cr Clr Drug Dosing mL/min Estimated GFR (MDRD) (>60) Glucose (74-106) mg/dL Lactic Acid 3.2 H (0.4-2.0) mmol/L Calcium (8.5-10.1) mg/dL Magnesium (1.8-2.4) mg/dL Total Bilirubin (0.2-1.0) mg/dL AST (15-37) U/L ALT (12-78) U/L Alkaline Phosphatase (46-116) U/L Troponin I < 0.017 (0.000-0.056) ng/mL NT-Pro-B Natriuret Pep 6455 H (5-125) pg/mL Total Protein (6.4-8.2) g/dL Albumin (3.4-5.0) g/dL Globulin (2.3-3.5) g/dL Albumin/Globulin Ratio (1.2-2.2) Procalcitonin 10.86 H* ng/mL 02/13/19 02/13/19 Range/Units 04:20 04:20 WBC 22.2 H (4.5-11.0) K/uL RBC 4.59 (4.30-5.90) M/uL Hgb 13.7 (12.0-15.0) g/dL Hct 43.7 (40.0-54.0) % MCV 95 (80-98) fL MCH 30 (27-31) pg MCHC 31 L (32-36) % Plt Count 150 (150-400) K/uL Add Manual Diff Yes Neutrophils % (Manual) 46 (36-66) % Band Neutrophils % 36 H (5-11) % Lymphocytes % (Manual) 3 L (24-44) % Monocytes % (Manual) 5 (2-6) % Metamyelocytes % 10 % Blast Cells % % ABG Hemoglobin (13.5-18.0) g/dL ABG Oxyhemoglobin % ABG Carboxyhemoglobin (0.0-1.6) % ABG Methemoglobin % VBG pH (7.350-7.450) VBG pCO2 mm/Hg VBG pO2 mm/Hg VBG HCO3 mmol/L VBG Total CO2 mmol/L VBG O2 Saturation VBG O2 Content %vol VBG Base Excess mm/L O2 Delivery Device Sodium 138 L (140-148) mmol/L Potassium 4.1 (3.6-5.2) mmol/L Chloride 102 (100-108) mmol/L Carbon Dioxide 26 (21-32) mmol/L Anion Gap 14.1 H (5.0-14.0) mmol/L BUN 26 H (7-18) mg/dL Creatinine 1.5 H (0.8-1.3) mg/dL Est Cr Clr Drug Dosing 40.89 mL/min Estimated GFR (MDRD) 46 L (>60) Glucose 130 H (74-106) mg/dL Lactic Acid (0.4-2.0) mmol/L Calcium 8.8 (8.5-10.1) mg/dL Magnesium 1.6 L (1.8-2.4) mg/dL Total Bilirubin (0.2-1.0) mg/dL AST (15-37) U/L ALT (12-78) U/L Alkaline Phosphatase (46-116) U/L Troponin I (0.000-0.056) ng/mL NT-Pro-B Natriuret Pep (5-125) pg/mL Total Protein (6.4-8.2) g/dL Albumin (3.4-5.0) g/dL Globulin (2.3-3.5) g/dL Albumin/Globulin Ratio (1.2-2.2) Procalcitonin ng/mL Med Orders - Current: Current Medications Acetaminophen (Tylenol) 650 mg PO Q4H PRN PRN Reason: Pain (Mild 1-3)/fever Albuterol (Proventil Neb Soln) 2.5 mg NEB Q4H PRN PRN Reason: Dyspnea Albuterol/Ipratropium (Duoneb 3.0-0.5 Mg/3 Ml) 3 ml NEB QIDRT [facility] Last Admin: 02/13/19 07:02 Dose: 3 ml Aspirin (Ecotrin) 325 mg PO DAILY [facility] Last Admin: 02/13/19 08:15 Dose: 325 mg Enoxaparin Sodium (Lovenox) 40 mg SUBCUT BEDTIME [facility] Norepinephrine Bitartrate 4 mg (/ Dextrose/Water) 250 mls @ 7.5 mls/hr IV TITRATE [facility]; Protocol Levofloxacin/Dextrose 750 mg/ (Premix) 150 mls @ 100 mls/hr IV Q48H [facility] Piperacillin/Tazobactam/ (Dextrose 3.375 gm/ Premix) 50 mls @ 100 mls/hr IV Q6H [facility] Last Admin: 02/13/19 08:15 Dose: 100 mls/hr Methylprednisolone Sodium Succinate (Solu-Medrol) 40 mg IVPUSH Q6H [facility] Ondansetron HCl (Zofran) 4 mg IV Q4H PRN PRN Reason: Nausea/Vomiting Polyethylene Glycol (Miralax) 17 gm PO DAILY PRN PRN Reason: Constipation Simvastatin (Zocor) 20 mg PO BEDTIME [facility] Last Admin: 02/12/19 22:50 Dose: Not Given Sodium Chloride (Saline Flush) 10 ml FLUSH ASDIRECTED PRN PRN Reason: Keep Vein Open Discontinued Medications Enoxaparin Sodium (Lovenox) 40 mg SUBCUT DAILY [facility] Last Admin: 02/12/19 22:52 Dose: 40 mg Sodium Chloride (Normal Saline) 1,000 mls @ 999 mls/hr IV .BOLUS ONE Stop: 02/12/19 20:48 Last Admin: 02/12/19 20:15 Dose: 999 mls/hr Sodium Chloride (Normal Saline) 1,000 mls @ 999 mls/hr IV .BOLUS ONE Stop: 02/12/19 21:02 Last Admin: 02/12/19 20:35 Dose: 999 mls/hr Piperacillin Sod/Tazobactam (Sod 4.5 gm/ Sodium Chloride) 100 mls @ 100 mls/hr IV ONETIME ONE Stop: 02/12/19 21:04 Last Admin: 02/12/19 20:37 Dose: 100 mls/hr Norepinephrine Bitartrate 4 mg (/ Dextrose/Water) 250 mls @ 7.5 mls/hr IV TITRATE [facility]; Protocol Last Titration: 02/13/19 07:09 Dose: 2 mcg/min, 7.5 mls/hr Levofloxacin/Dextrose 750 mg/ (Premix) 150 mls @ 100 mls/hr IV Q48H [facility] Last Admin: 02/12/19 23:29 Dose: 100 mls/hr Piperacillin Sod/Tazobactam (Sod 3.375 gm/ Sodium Chloride) 50 mls @ 100 mls/ hr IV Q6H [facility] Last Admin: 02/13/19 05:14 Dose: Not Given Sodium Chloride (Normal Saline) 1,000 mls @ 125 mls/hr IV ASDIRECTED [facility] Last Admin: 02/13/19 03:18 Dose: 125 mls/hr Piperacillin Sod/Tazobactam (Sod 3.375 gm/ Sodium Chloride) 50 mls @ 100 mls/ hr IV Q6H [facility] Last Admin: 02/13/19 02:27 Dose: 100 mls/hr Methylprednisolone Sodium Succinate (Solu-Medrol) 62.5 mg IVPUSH ONETIME ONE Stop: 02/12/19 20:05 Last Admin: 02/12/19 20:38 Dose: 62.5 mg Methylprednisolone Sodium Succinate (Solu-Medrol) 40 mg IVPUSH Q6H [facility] Last Admin: 02/13/19 04:15 Dose: 40 mg Sodium Chloride (Saline Flush) 10 ml FLUSH ASDIRECTED PRN PRN Reason: Keep Vein Open Last Admin: 02/12/19 20:41 Dose: 10 ml - Exam Quality Assessment: Supplemental Oxygen General: Alert, Oriented, Cooperative, No Acute Distress HEENT: Pupils Equal Neck: Supple Lungs: Crackles (moderate right mid and lower lung, few left side ). No: Normal Respiratory Effort (mild increased work of breathing ) Cardiovascular: Regular Rate, Regular Rhythm, No Murmurs GI/Abdominal Exam: Soft, No Distention Extremities: No Pedal Edema. No: Increased Warmth Skin: Warm, Dry Psy/Mental Status: Alert, Normal Affect - Problem List Review Problem List Initiated/Reviewed/Updated: Yes - My Orders Last 24 Hours: My Active Orders 02/13/19 09:43 Cyclobenzaprine HCl [Cyclobenzaprine HCl] 10 mg PO BEDTIME PRN Diclofenac Sodium [Voltaren 1% Gel] 1 applic TOP BID PRN 02/13/19 09:45 LACTIC ACID [CHEM] Routine Citalopram [Celexa] 20 mg PO DAILY Magnesium Sulfate/Water [Magnesium Sulfate in Water Premix] 2 gm Premix Bag 1 bag IV Q6H Tamsulosin [Flomax] 0.4 mg PO DAILY 02/13/19 10:00 Sodium Chloride 0.9% [Normal Saline] 1,000 ml IV ASDIRECTED 02/14/19 05:00 BASIC METABOLIC PANEL,BMP [CHEM] Timed CBC W/O DIFF,HEMOGRAM [HEME] Timed (1) - Plan Plan:: ASSESSMENT AND PLAN PNEUMONIA WITH SEPTIC SHOCK - underlying chronic lung disease. Still requiring vasopressor support but is less tachycardic today. Clinically feeling a little better. Mildly to Make but stable with only 2.5 liters of supplemental oxygen. Cultures are negative so far. -norepinephrine for management of hypotension -IV Zosyn and levofloxacin -Follow-up cultures -Gentle IV fluids -Hold CellCept HYPOXIA - secondary to underlying pulmonary fibrosis and pneumonia. -Supplemental oxygen as needed -Solu-Medrol 40 mg IV every 6 hours, wheezing better today -Nebulized albuterol and duo nebs SCLERODERMA - with underlying pulmonary fibrosis -Hold CellCept CORONARY ARTERY DISEASE - currently asymptomatic -Continue outpatient medical regimen MAINTENANCE ISSUES -DVT prophylaxis; Lovenox 40 mg subcutaneous daily -GI prophylaxis; not indicated -Kong catheter; not indicated -Nutrition; regular diet DISPOSITION - anticipate discharge to home after the hospital stay. Hosea Yang MD
[2019-02-13] MEDS ORDERED: Sodium Chloride 0.9% 1,000 ML IV SCH (10:00)
[2019-02-13] MEDS: Magnesium Sulfate/Water 2 GM in Premix Bag 1 BAG IV SCH ×2 (10:29→15:48)
[2019-02-13] MEDS: Tamsulosin 0.4 MG Cap.ER PO SCH (10:29)
[2019-02-13] MEDS: Citalopram 20 MG Tab PO SCH (10:29)
[2019-02-13] MEDS: Simvastatin 20 MG Tab PO SCH (20:54)
[2019-02-13] MEDS: Enoxaparin 40 MG/0.4 ML Syringe SUBCUT SCH (20:55)
[2019-02-14] MEDS: Piperacillin/Tazobactam/Dext 3.375 GM in Premix Bag 1 BAG IV SCH ×4 (01:54→19:28)
[2019-02-14] MEDS: methylPREDNISolone Sodium Succinate 40 MG/1 ML SDV IVPUSH SCH (04:33)
[2019-02-14] MEDS: Albuterol/Ipratropium 3.0-0.5 MG/3 ML Neb Soln NEB SCH ×4 (07:28→21:00)
[2019-02-14] MEDS: Aspirin 325 MG Tab.EC PO SCH (09:00)
[2019-02-14] MEDS ORDERED: Potassium Chloride 20 MEQ Tab.ER PO ONE (09:00)
[2019-02-14] MEDS: Tamsulosin 0.4 MG Cap.ER PO SCH (09:00)
[2019-02-14] MEDS: Citalopram 20 MG Tab PO SCH (09:00)
[2019-02-14] MEDS ORDERED: predniSONE 20 MG Tab PO ONE (09:02)
--- NOTE | 2019-02-14 09:05 | PCM.PN ---
- General Info Date of Service: 02/14/19 Subjective Update: there were no acute events overnight. The norepinephrine has been discontinued and his blood pressure has remained stable. He has been stable on 2.5 L of supplemental oxygen. No fevers overnight. Only minor pleuritic chest pain on the right reported. He remains mildly tachycardic. White blood cell count is trending down. strength is slowly improving. Functional Status: Reports: Pain Controlled, Tolerating Diet - Review of Systems General: Denies: Fever Pulmonary: Reports: Shortness of Breath, Cough - Patient Data Vitals - Most Recent: Last Vital Signs Temp 36.3 C 02/14/19 08:00 Pulse 92 02/14/19 08:00 Resp 29 H 02/14/19 08:00 BP 116/66 02/14/19 08:00 Pulse Ox 96 02/14/19 08:00 Weight - Most Recent: 68.356 kg I&O - Last 24 Hours: Intake & Output 02/13/19 02/14/19 02/14/19 22:59 06:59 14:59 Intake Total 1346 901 290 Output Total 800 875 450 Balance 546 26 -160 Lab Results Last 24 Hours: Laboratory Results - last 24 hr 02/13/19 02/14/19 02/14/19 Range/Units 09:45 04:00 04:00 WBC 19.3 H (4.5-11.0) K/uL RBC 4.56 (4.30-5.90) M/uL Hgb 13.7 (12.0-15.0) g/dL Hct 41.5 (40.0-54.0) % MCV 91 (80-98) fL MCH 30 (27-31) pg MCHC 33 (32-36) % Plt Count 108 L (150-400) K/uL Sodium 136 L (140-148) mmol/L Potassium 3.5 L (3.6-5.2) mmol/L Chloride 102 (100-108) mmol/L Carbon Dioxide 21 (21-32) mmol/L Anion Gap 16.5 H (5.0-14.0) mmol/L BUN 28 H (7-18) mg/dL Creatinine 0.9 (0.8-1.3) mg/dL Est Cr Clr Drug Dosing 68.24 mL/min Estimated GFR (MDRD) > 60 (>60) Glucose 136 H (74-106) mg/dL Lactic Acid 3.9 H (0.4-2.0) mmol/L Calcium 9.2 (8.5-10.1) mg/dL Mushtaq Results Last 24 Hours: Microbiology 02/12/19 20:10 Aerobic Blood Culture - Preliminary Blood - Arm, Right NO GROWTH AFTER 1 DAY Anaerobic Blood Culture - Preliminary NO GROWTH AFTER 1 DAY 02/12/19 20:05 Aerobic Blood Culture - Preliminary Blood - Arm, Right NO GROWTH AFTER 1 DAY Anaerobic Blood Culture - Preliminary NO GROWTH AFTER 1 DAY Med Orders - Current: Current Medications Acetaminophen (Tylenol) 650 mg PO Q4H PRN PRN Reason: Pain (Mild 1-3)/fever Albuterol (Proventil Neb Soln) 2.5 mg NEB Q4H PRN PRN Reason: Dyspnea Albuterol/Ipratropium (Duoneb 3.0-0.5 Mg/3 Ml) 3 ml NEB QIDRT [facility] Last Admin: 02/14/19 07:28 Dose: 3 ml Aspirin (Ecotrin) 325 mg PO DAILY [facility] Last Admin: 02/14/19 09:00 Dose: 325 mg Citalopram Hydrobromide (Celexa) 20 mg PO DAILY [facility] Last Admin: 02/14/19 09:00 Dose: 20 mg Cyclobenzaprine HCl (Flexeril) 10 mg PO BEDTIME PRN PRN Reason: Sleep Last Admin: 02/13/19 20:54 Dose: 10 mg Diclofenac Sodium (Voltaren 1% Gel) 0 gm TOP BID PRN PRN Reason: joint pain Enoxaparin Sodium (Lovenox) 40 mg SUBCUT BEDTIME [facility] Last Admin: 02/13/19 20:55 Dose: 40 mg Piperacillin/Tazobactam/ (Dextrose 3.375 gm/ Premix) 50 mls @ 100 mls/hr IV Q6H [facility] Last Admin: 02/14/19 07:18 Dose: 100 mls/hr Ondansetron HCl (Zofran) 4 mg IV Q4H PRN PRN Reason: Nausea/Vomiting Polyethylene Glycol (Miralax) 17 gm PO DAILY PRN PRN Reason: Constipation Simvastatin (Zocor) 20 mg PO BEDTIME [facility] Last Admin: 02/13/19 20:54 Dose: 20 mg Sodium Chloride (Saline Flush) 10 ml FLUSH ASDIRECTED PRN PRN Reason: Keep Vein Open Tamsulosin HCl (Flomax) 0.4 mg PO DAILY [facility] Last Admin: 02/14/19 09:00 Dose: 0.4 mg Discontinued Medications Enoxaparin Sodium (Lovenox) 40 mg SUBCUT DAILY [facility] Last Admin: 02/12/19 22:52 Dose: 40 mg Sodium Chloride (Normal Saline) 1,000 mls @ 999 mls/hr IV .BOLUS ONE Stop: 02/12/19 20:48 Last Admin: 02/12/19 20:15 Dose: 999 mls/hr Sodium Chloride (Normal Saline) 1,000 mls @ 999 mls/hr IV .BOLUS ONE Stop: 02/12/19 21:02 Last Admin: 02/12/19 20:35 Dose: 999 mls/hr Piperacillin Sod/Tazobactam (Sod 4.5 gm/ Sodium Chloride) 100 mls @ 100 mls/hr IV ONETIME ONE Stop: 02/12/19 21:04 Last Admin: 02/12/19 20:37 Dose: 100 mls/hr Norepinephrine Bitartrate 4 mg (/ Dextrose/Water) 250 mls @ 7.5 mls/hr IV TITRATE [facility]; Protocol Last Titration: 02/13/19 15:24 Dose: 1 mcg/min, 3.75 mls/hr Levofloxacin/Dextrose 750 mg/ (Premix) 150 mls @ 100 mls/hr IV Q48H [facility] Last Admin: 02/12/19 23:29 Dose: 100 mls/hr Norepinephrine Bitartrate 4 mg (/ Dextrose/Water) 250 mls @ 7.5 mls/hr IV TITRATE [facility]; Protocol Last Titration: 02/13/19 18:21 Dose: 0 mcg/min, 0 mls/hr Piperacillin Sod/Tazobactam (Sod 3.375 gm/ Sodium Chloride) 50 mls @ 100 mls/ hr IV Q6H [facility] Last Admin: 02/13/19 05:14 Dose: Not Given Sodium Chloride (Normal Saline) 1,000 mls @ 125 mls/hr IV ASDIRECTED [facility] Last Admin: 02/13/19 03:18 Dose: 125 mls/hr Piperacillin Sod/Tazobactam (Sod 3.375 gm/ Sodium Chloride) 50 mls @ 100 mls/ hr IV Q6H [facility] Last Admin: 02/13/19 02:27 Dose: 100 mls/hr Levofloxacin/Dextrose 750 mg/ (Premix) 150 mls @ 100 mls/hr IV Q48H [facility] Magnesium Sulfate 2 gm/ Premix 50 mls @ 12.5 mls/hr IV Q6H [facility] Stop: 02/13/19 19:59 Last Admin: 02/13/19 15:48 Dose: 12.5 mls/hr Sodium Chloride (Normal Saline) 1,000 mls @ 75 mls/hr IV ASDIRECTED [facility] Last Admin: 02/14/19 02:33 Dose: 75 mls/hr Methylprednisolone Sodium Succinate (Solu-Medrol) 62.5 mg IVPUSH ONETIME ONE Stop: 02/12/19 20:05 Last Admin: 02/12/19 20:38 Dose: 62.5 mg Methylprednisolone Sodium Succinate (Solu-Medrol) 40 mg IVPUSH Q6H [facility] Last Admin: 02/13/19 04:15 Dose: 40 mg Methylprednisolone Sodium Succinate (Solu-Medrol) 40 mg IVPUSH Q6H [facility] Last Admin: 02/14/19 04:33 Dose: 40 mg Potassium Chloride (Klor-Con M20) 40 meq PO ONETIME ONE Stop: 02/14/19 09:01 Last Admin: 02/14/19 09:00 Dose: 40 meq Sodium Chloride (Saline Flush) 10 ml FLUSH ASDIRECTED PRN PRN Reason: Keep Vein Open Last Admin: 02/12/19 20:41 Dose: 10 ml - Exam Quality Assessment: Supplemental Oxygen General: Alert, Oriented, Cooperative, No Acute Distress Lungs: Normal Respiratory Effort, Crackles (few both bases ) Cardiovascular: Regular Rate, Regular Rhythm GI/Abdominal Exam: Normal Bowel Sounds, Soft, No Distention Extremities: No Pedal Edema. No: Increased Warmth Skin: Warm, Dry Psy/Mental Status: Alert, Normal Affect - Problem List Review Problem List Initiated/Reviewed/Updated: Yes - My Orders Last 24 Hours: My Active Orders 02/13/19 09:43 Cyclobenzaprine [Flexeril] 10 mg PO BEDTIME PRN Diclofenac Sodium [Voltaren 1% Gel] 0 gm TOP BID PRN 02/13/19 09:45 Citalopram [Celexa] 20 mg PO DAILY Tamsulosin [Flomax] 0.4 mg PO DAILY 02/14/19 09:01 Transfer Patient (Change bed) [ADT] Routine Discontinue Telemetry Monitoring [Cardiac Monitoring Discontinue] [RC] Click to Edit 02/14/19 09:02 predniSONE 20 mg PO ONETIME ONE 02/14/19 09:04 PT Evaluation and Treatment [CONS] Routine 02/14/19 09:15 Sodium Chloride 0.9% [Normal Saline] 1,000 ml IV ASDIRECTED 02/14/19 16:30 predniSONE 20 mg PO BIDAC 02/14/19 21:00 Levofloxacin/Dextrose 5%-Water [Levaquin in D5W 750 MG/150 ML] 750 mg Premix Bag 1 bag IV Q24H 02/15/19 05:00 BASIC METABOLIC PANEL,BMP [CHEM] Timed CBC W/O DIFF,HEMOGRAM [HEME] Timed (1) - Plan Plan:: ASSESSMENT AND PLAN PNEUMONIA WITH SEPTIC SHOCK - underlying chronic lung disease. he is now off vasopressor support. Oxygenation has been stable with 2.5 L of supplemental oxygen. Blood pressure has remained stable. Cultures have been negative so far. -IV Zosyn and levofloxacin, de-escalate tomorrow -Follow-up cultures -IV fluids at [facility] -Hold CellCept HYPOXIA - secondary to underlying pulmonary fibrosis and pneumonia. -Supplemental oxygen as needed -transition to prednisone -Nebulized albuterol and duo nebs SCLERODERMA - with underlying pulmonary fibrosis -Hold CellCept CORONARY ARTERY DISEASE - currently asymptomatic -Continue outpatient medical regimen MAINTENANCE ISSUES -DVT prophylaxis; Lovenox 40 mg subcutaneous daily -GI prophylaxis; not indicated -Kong catheter; not indicated -Nutrition; regular diet DISPOSITION - anticipate discharge to home after the hospital stay. patient is stable and safe for transfer out of the intensive care unit today. Hosea Yang MD
[2019-02-14] MEDS ORDERED: Sodium Chloride 0.9% 1,000 ML IV SCH (09:15)
[2019-02-14] MEDS: predniSONE 20 MG Tab PO SCH (16:28)
[2019-02-14] MEDS: Enoxaparin 40 MG/0.4 ML Syringe SUBCUT SCH (20:48)
[2019-02-14] MEDS: Simvastatin 20 MG Tab PO SCH (20:48)
[2019-02-14] MEDS ORDERED: Levofloxacin/Dextrose 5%-Water 750 MG in Premix Bag 1 BAG IV SCH ×2 (21:00)
[2019-02-15] MEDS: Piperacillin/Tazobactam/Dext 3.375 GM in Premix Bag 1 BAG IV SCH ×2 (01:20→08:01)
[2019-02-15] MEDS: Albuterol/Ipratropium 3.0-0.5 MG/3 ML Neb Soln NEB SCH ×4 (07:09→20:43)
[2019-02-15] MEDS: predniSONE 20 MG Tab PO SCH ×2 (08:02→17:28)
[2019-02-15] MEDS: Aspirin 325 MG Tab.EC PO SCH (08:03)
[2019-02-15] MEDS: Tamsulosin 0.4 MG Cap.ER PO SCH (08:03)
[2019-02-15] MEDS: Citalopram 20 MG Tab PO SCH (08:03)
[2019-02-15] MEDS ORDERED: Calcium Carbonate 500 MG Tab.Chew PO PRN (08:04)
--- NOTE | 2019-02-15 10:03 | PCM.PN ---
- General Info Date of Service: 02/15/19 Subjective Update: There were no acute events overnight. Patient reports that he feels fairly well today. He has not had any pleuritic chest pain. He made a fairly long walk [place] the [place] but did have to stop several times. Continues to require supplemental oxygen 24 hours per day. Cough is relatively mild. Appetite still not great and he did have an episode of vomiting this morning. No complaints of abdominal pain. White blood cell count stable. Not having any fevers. Functional Status: Reports: Pain Controlled, Tolerating Diet - Review of Systems General: Denies: Fever Pulmonary: Denies: Shortness of Breath, Pleuritic Chest Pain Gastrointestinal: Reports: Nausea - Patient Data Vitals - Most Recent: Last Vital Signs Temp 35.7 C 02/15/19 07:00 Pulse 95 02/15/19 07:09 Resp 18 02/15/19 07:00 BP 116/60 02/15/19 07:00 Pulse Ox 80 L 02/15/19 07:09 Weight - Most Recent: 68.356 kg I&O - Last 24 Hours: Intake & Output 02/14/19 02/15/19 02/15/19 22:59 06:59 14:59 Intake Total 317 600 Output Total 600 Balance -283 600 Lab Results Last 24 Hours: Laboratory Results - last 24 hr 02/15/19 02/15/19 Range/Units 04:50 04:50 WBC 19.9 H (4.5-11.0) K/uL RBC 4.16 L (4.30-5.90) M/uL Hgb 12.2 (12.0-15.0) g/dL Hct 38.5 L (40.0-54.0) % MCV 93 (80-98) fL MCH 29 (27-31) pg MCHC 32 (32-36) % Plt Count 130 L (150-400) K/uL Sodium 137 L (140-148) mmol/L Potassium 3.9 (3.6-5.2) mmol/L Chloride 103 (100-108) mmol/L Carbon Dioxide 27 (21-32) mmol/L Anion Gap 10.9 (5.0-14.0) mmol/L BUN 23 H (7-18) mg/dL Creatinine 0.7 L (0.8-1.3) mg/dL Est Cr Clr Drug Dosing 87.74 mL/min Estimated GFR (MDRD) > 60 (>60) Glucose 117 H (74-106) mg/dL Calcium 9.7 (8.5-10.1) mg/dL [facility] Results Last 24 Hours: Microbiology 02/12/19 20:05 Aerobic Blood Culture - Preliminary Blood - Arm, Right NO GROWTH AFTER 2 DAYS Anaerobic Blood Culture - Preliminary NO GROWTH AFTER 2 DAYS 02/12/19 20:10 Aerobic Blood Culture - Preliminary Blood - Arm, Right NO GROWTH AFTER 2 DAYS Anaerobic Blood Culture - Preliminary NO GROWTH AFTER 2 DAYS Med Orders - Current: Current Medications Acetaminophen (Tylenol) 650 mg PO Q4H PRN PRN Reason: Pain (Mild 1-3)/fever Albuterol (Proventil Neb Soln) 2.5 mg NEB Q4H PRN PRN Reason: Dyspnea Albuterol/Ipratropium (Duoneb 3.0-0.5 Mg/3 Ml) 3 ml NEB QIDRT [facility] Last Admin: 02/15/19 07:09 Dose: 3 ml Aspirin (Ecotrin) 325 mg PO DAILY [facility] Last Admin: 02/15/19 08:03 Dose: 325 mg Calcium Carbonate/Glycine (Tums) 1,000 mg PO Q2H PRN PRN Reason: Indigestion Last Admin: 02/15/19 09:02 Dose: 1,000 mg Citalopram Hydrobromide (Celexa) 20 mg PO DAILY [facility] Last Admin: 02/15/19 08:03 Dose: 20 mg Cyclobenzaprine HCl (Flexeril) 10 mg PO BEDTIME PRN PRN Reason: Sleep Last Admin: 02/13/19 20:54 Dose: 10 mg Diclofenac Sodium (Voltaren 1% Gel) 0 gm TOP BID PRN PRN Reason: joint pain Enoxaparin Sodium (Lovenox) 40 mg SUBCUT BEDTIME [facility] Last Admin: 02/14/19 20:48 Dose: 40 mg Levofloxacin (Levaquin) 750 mg PO Q24H [facility] Ondansetron HCl (Zofran) 4 mg IV Q4H PRN PRN Reason: Nausea/Vomiting Last Admin: 02/14/19 13:38 Dose: 4 mg Polyethylene Glycol (Miralax) 17 gm PO DAILY PRN PRN Reason: Constipation Prednisone (Prednisone) 20 mg PO BIDNHALS [facility] Stop: 02/16/19 17:01 Last Admin: 02/15/19 08:02 Dose: 20 mg Simvastatin (Zocor) 20 mg PO BEDTIME [facility] Last Admin: 02/14/19 20:48 Dose: 20 mg Sodium Chloride (Saline Flush) 10 ml FLUSH ASDIRECTED PRN PRN Reason: Keep Vein Open Tamsulosin HCl (Flomax) 0.4 mg PO DAILY [facility] Last Admin: 02/15/19 08:03 Dose: 0.4 mg Discontinued Medications Enoxaparin Sodium (Lovenox) 40 mg SUBCUT DAILY [facility] Last Admin: 02/12/19 22:52 Dose: 40 mg Sodium Chloride (Normal Saline) 1,000 mls @ 999 mls/hr IV .BOLUS ONE Stop: 02/12/19 20:48 Last Admin: 02/12/19 20:15 Dose: 999 mls/hr Sodium Chloride (Normal Saline) 1,000 mls @ 999 mls/hr IV .BOLUS ONE Stop: 02/12/19 21:02 Last Admin: 02/12/19 20:35 Dose: 999 mls/hr Piperacillin Sod/Tazobactam (Sod 4.5 gm/ Sodium Chloride) 100 mls @ 100 mls/hr IV ONETIME ONE Stop: 02/12/19 21:04 Last Admin: 02/12/19 20:37 Dose: 100 mls/hr Norepinephrine Bitartrate 4 mg (/ Dextrose/Water) 250 mls @ 7.5 mls/hr IV TITRATE [facility]; Protocol Last Titration: 02/13/19 15:24 Dose: 1 mcg/min, 3.75 mls/hr Levofloxacin/Dextrose 750 mg/ (Premix) 150 mls @ 100 mls/hr IV Q48H [facility] Last Admin: 02/12/19 23:29 Dose: 100 mls/hr Norepinephrine Bitartrate 4 mg (/ Dextrose/Water) 250 mls @ 7.5 mls/hr IV TITRATE [facility]; Protocol Last Titration: 02/13/19 18:21 Dose: 0 mcg/min, 0 mls/hr Piperacillin Sod/Tazobactam (Sod 3.375 gm/ Sodium Chloride) 50 mls @ 100 mls/ hr IV Q6H [facility] Last Admin: 02/13/19 05:14 Dose: Not Given Sodium Chloride (Normal Saline) 1,000 mls @ 125 mls/hr IV ASDIRECTED [facility] Last Admin: 02/13/19 03:18 Dose: 125 mls/hr Piperacillin Sod/Tazobactam (Sod 3.375 gm/ Sodium Chloride) 50 mls @ 100 mls/ hr IV Q6H [facility] Last Admin: 02/13/19 02:27 Dose: 100 mls/hr Levofloxacin/Dextrose 750 mg/ (Premix) 150 mls @ 100 mls/hr IV Q48H [facility] Piperacillin/Tazobactam/ (Dextrose 3.375 gm/ Premix) 50 mls @ 100 mls/hr IV Q6H [facility] Last Admin: 02/15/19 08:01 Dose: 100 mls/hr Magnesium Sulfate 2 gm/ Premix 50 mls @ 12.5 mls/hr IV Q6H [facility] Stop: 02/13/19 19:59 Last Admin: 02/13/19 15:48 Dose: 12.5 mls/hr Sodium Chloride (Normal Saline) 1,000 mls @ 75 mls/hr IV ASDIRECTED [facility] Last Admin: 02/14/19 02:33 Dose: 75 mls/hr Levofloxacin/Dextrose 750 mg/ (Premix) 150 mls @ 100 mls/hr IV Q24H [facility] Last Admin: 02/14/19 20:48 Dose: 100 mls/hr Sodium Chloride (Normal Saline) 1,000 mls @ 25 mls/hr IV ASDIRECTED [facility] Last Admin: 02/15/19 06:19 Dose: 25 mls/hr Methylprednisolone Sodium Succinate (Solu-Medrol) 62.5 mg IVPUSH ONETIME ONE Stop: 02/12/19 20:05 Last Admin: 02/12/19 20:38 Dose: 62.5 mg Methylprednisolone Sodium Succinate (Solu-Medrol) 40 mg IVPUSH Q6H [facility] Last Admin: 02/13/19 04:15 Dose: 40 mg Methylprednisolone Sodium Succinate (Solu-Medrol) 40 mg IVPUSH Q6H [facility] Last Admin: 02/14/19 04:33 Dose: 40 mg Potassium Chloride (Klor-Con M20) 40 meq PO ONETIME ONE Stop: 02/14/19 09:01 Last Admin: 02/14/19 09:00 Dose: 40 meq Prednisone (Prednisone) 20 mg PO ONETIME ONE Stop: 02/14/19 09:03 Last Admin: 02/14/19 09:22 Dose: 20 mg Sodium Chloride (Saline Flush) 10 ml FLUSH ASDIRECTED PRN PRN Reason: Keep Vein Open Last Admin: 02/12/19 20:41 Dose: 10 ml - Exam Quality Assessment: Supplemental Oxygen General: Alert, Oriented, Cooperative, No Acute Distress Lungs: Normal Respiratory Effort, Crackles (rare right upper lung, mild left lower lung ) Cardiovascular: Regular Rate, Regular Rhythm GI/Abdominal Exam: Soft, No Distention Extremities: No Pedal Edema Psy/Mental Status: Alert, Normal Affect - Problem List Review Problem List Initiated/Reviewed/Updated: Yes - My Orders Last 24 Hours: My Active Orders 02/14/19 09:04 PT Evaluation and Treatment [CONS] Routine 02/14/19 17:00 predniSONE 20 mg PO BIDMEALS 02/15/19 08:04 Calcium Carbonate [Tums] 1,000 mg PO Q2H PRN 02/15/19 10:01 Convert IV to Saline Lock [OM.PC] Routine 02/15/19 21:00 levoFLOXacin [Levaquin] 750 mg PO Q24H - Plan Plan:: ASSESSMENT AND PLAN PNEUMONIA WITH SEPTIC SHOCK - underlying chronic lung disease. Respiratory status continues to improve. He does continue to require supplemental oxygen. He has been able to increase his activity. No fevers. -Discontinue Pip/Tazo -Transition levofloxacin to oral -Follow-up cultures -Saline lock -Hold CellCept HYPOXIA - secondary to underlying pulmonary fibrosis and pneumonia. Oxygenation stable not back to baseline. -Supplemental oxygen as needed -transition to prednisone -Nebulized albuterol and duo nebs SCLERODERMA - with underlying pulmonary fibrosis -Hold CellCept CORONARY ARTERY DISEASE - currently asymptomatic -Continue outpatient medical regimen MAINTENANCE ISSUES -DVT prophylaxis; Lovenox 40 mg subcutaneous daily -GI prophylaxis; not indicated -Kong catheter; not indicated -Nutrition; regular diet DISPOSITION - anticipate discharge to home after the hospital stay, likely in the next 1 or 2 days. Hosea Yang MD
[2019-02-15] MEDS: Simvastatin 20 MG Tab PO SCH (20:43)
[2019-02-15] MEDS: Enoxaparin 40 MG/0.4 ML Syringe SUBCUT SCH (20:43)
[2019-02-15] MEDS ORDERED: Levofloxacin 250 MG Tab PO SCH (21:00)
[2019-02-16] MEDS: Albuterol/Ipratropium 3.0-0.5 MG/3 ML Neb Soln NEB SCH ×2 (07:08→10:53)
[2019-02-16 07:30] VITALS: BP 140/77
[2019-02-16] MEDS: predniSONE 20 MG Tab PO SCH (07:47)
[2019-02-16] MEDS: Citalopram 20 MG Tab PO SCH (08:36)
[2019-02-16] MEDS: Aspirin 325 MG Tab.EC PO SCH (08:36)
[2019-02-16] MEDS: Tamsulosin 0.4 MG Cap.ER PO SCH (08:36)
--- NOTE | 2019-02-16 10:32 | PCM.DCSUM1 ---
Discharge Summary - Hospital Course Brief History: 73-year-old male with history of scleroderma with the disease affecting his lungs who presented with cough and shortness of breath. Workup in the emergency room suggested right-sided pneumonia and sepsis. He was admitted to the intensive care unit for further management Diagnosis: Stroke: No - Discharge Data Discharge Date: 02/16/19 Discharge Disposition: Home, Self-Care 01 Condition: Good - Discharge Diagnosis/Problem(s) (1) Pneumonia SNOMED Code(s): 497122577 ICD Code: J18.9 - PNEUMONIA, UNSPECIFIED ORGANISM Status: Acute Qualifiers: Pneumonia type: due to unspecified organism Laterality: right Lung location: lower lobe of lung Qualified Code(s): J18.1 - Lobar pneumonia, unspecified organism (2) Septic shock SNOMED Code(s): 47486986 ICD Code: A41.9 - SEPSIS, UNSPECIFIED ORGANISM; R65.21 - SEVERE SEPSIS WITH SEPTIC SHOCK Status: Acute (3) Acute kidney injury SNOMED Code(s): 07317871, 12393023 ICD Code: N17.9 - ACUTE KIDNEY FAILURE, UNSPECIFIED Status: Acute (4) Scleroderma involving lung SNOMED Code(s): 117228867 ICD Code: M34.9 - SYSTEMIC SCLEROSIS, UNSPECIFIED Status: Chronic - Patient Summary/Data Consults: Consultations 02/14/19 09:04 PT Evaluation and Treatment [CONS] Routine Please Evaluate and Treat. PT Reason for Consult: Strengthening This query below is only for informational purposes and is not editable. Admission Diagnosis/Problem: Pneumonia Hospital Course: "Mohit" presented to the emergency room with cough and shortness of breath. Workup in the emergency room suggested right lung pneumonia with sepsis syndrome. He had acute on chronic hypoxic respiratory failure. He was admitted to the intensive care unit for further management after IV fluids were initiated , ultras were obtained and read spectrum antibiotics were administered. Overnight following admission he had worsening hypotension and did require vasopressor support. Respiratory status did show some improvement overnight following admission. By the morning after admission he is still requiring supplemental oxygen but his breathing easier. He continues to requires vasopressor support and this was continued throughout the first full day of hospitalization. By the second day of hospitalization he is feeling a fair amount better. He has been weaned off of his vasopressor support. Vital signs have stabilized. White blood cell count is trending down. Symptomatically is feeling quite a bit better with less cough and less shortness of breath. He has not had any fevers. On the third day of hospitalization his antibiotics were de- escalated to monotherapy with levofloxacin. His cultures have all been negative. Clinically he continues to improve at this point. After the transition to monotherapy he continued to do well. On the day of discharge he is up and moving around. He is off the supplemental oxygen during the day. He has not had fevers. Vital signs have been stable. He feels well and is interested in going home at this time. He will need for additional doses of antibiotic therapy. He would benefit from early follow-up next week. He has completed adequate steroid therapy at this time. His CellCept will be on hold until he has completed antibiotics early next week. - Patient Instructions Diet: Regular Diet as Tolerated Activity: As Tolerated Showering/Bathing: May Shower Notify Provider of: Fever, Increased Pain Other/Special Instructions: 1. You were in the hospital for management of right- sided pneumonia complicated by septic shock. Your condition has been improving with anabiotic therapy and additional supportive cares. We did not determine the causative the bacteria. I do recommend ongoing antibiotic therapy with levofloxacin. You should take 750 mg at bedtime for 4 more doses. Your next dose will be due tonight. Please continue to hold your CellCept until you have completed your antibiotic therapy. You may resume the CellCept on Wednesday. 2. Continue your other home medications as previously prescribed. 3. Seek medical attention if fever greater than 101, severe shortness of breath or if you develop sudden onset of chest pain or pressure. - Discharge Plan *PRESCRIPTION DRUG MONITORING PROGRAM REVIEWED*: Not Applicable *COPY OF PRESCRIPTION DRUG MONITORING REPORT IN PATIENT TINY: Not Applicable Prescriptions/Med Rec: Levofloxacin 750 mg PO BEDTIME #4 tablet Home Medications: Home Meds Aspirin 325 mg PO DAILY 04/28/16 [History] Cholecalciferol (Vitamin D3) [Vitamin D3] 1,000 unit PO DAILY 04/28/16 [History] Mycophenolate Mofetil [Cellcept] 1,500 mg PO BID 04/28/16 [History] Naproxen 500 mg PO BID 04/28/16 [History] [place]-3 Fatty Acids/Fish Oil [Fish Oil 1,000 mg Softgel] 1,000 mg PO DAILY 04/28 [History] Pyridoxine HCl (Vitamin B6) [Pyridoxine HCl] 100 mg PO DAILY 04/28/16 [History] Simvastatin [Zocor] 20 mg PO BEDTIME 04/28/16 [History] Citalopram [Citalopram HBr] 20 mg PO DAILY 02/12/19 [History] Cyclobenzaprine HCl 10 mg PO BEDTIME 02/12/19 [History] Diclofenac Sodium [Voltaren] 1 applic TOP ASDIRECTED PRN 02/12/19 [History] Fluticasone Propionate [Flonase Allergy Relief] 2 sprays NS DAILY 02/12/19 [ History] Ipratropium [Atrovent 0.06% Nasal [place]] 2 sprays NS BEDTIME 02/12/19 [History] Nitroglycerin [Nitro-Bid 2%] 1 inch TOP BID 02/12/19 [History] Omeprazole 20 mg PO ASDIRECTED 02/12/19 [History] Tamsulosin HCl [Flomax] 0.4 mg PO DAILY 02/12/19 [History] Levofloxacin 750 mg PO BEDTIME #4 tablet 02/16/19 [Rx] Oxygen Therapy Mode: Room Air Patient Handouts: Levofloxacin tablets, Community-Acquired Pneumonia, Adult, [id number] Referrals: Raji Mcgarry MD [Primary Care Provider] - 02/23/19 2:00 pm (Please arrive 15 minutes early to register for your appointment.) - Discharge Summary/Plan Comment DC Time >30 min.: No - Patient Data Vitals - Most Recent: Last Vital Signs Temp 36.2 C 02/16/19 07:27 Pulse 94 02/16/19 07:27 Resp 16 02/16/19 07:27 BP 140/77 02/16/19 07:27 Pulse Ox 94 L 02/16/19 07:27 Weight - Most Recent: 68.356 kg I&O - Last 24 hours: Intake & Output 02/15/19 02/16/19 02/16/19 22:59 06:59 14:59 Intake Total 240 553 75 Output Total 400 275 Balance 240 153 -200 [facility]OLA Results - Last 24 hrs: Microbiology 02/12/19 20:05 Aerobic Blood Culture - Preliminary Blood - Arm, Right NO GROWTH AFTER 3 DAYS Anaerobic Blood Culture - Preliminary NO GROWTH AFTER 3 DAYS 07/28/19 20:10 Aerobic Blood Culture - Preliminary Blood - Arm, Right NO GROWTH AFTER 3 DAYS Anaerobic Blood Culture - Preliminary NO GROWTH AFTER 3 DAYS Med Orders - Current: Current Medications Acetaminophen (Tylenol) 650 mg PO Q4H PRN PRN Reason: Pain (Mild 1-3)/fever Albuterol (Proventil Neb Soln) 2.5 mg NEB Q4H PRN PRN Reason: Dyspnea Albuterol/Ipratropium (Duoneb 3.0-0.5 Mg/3 Ml) 3 ml NEB QIDRT [facility] Last Admin: 02/16/19 07:08 Dose: 3 ml Aspirin (Ecotrin) 325 mg PO DAILY [facility] Last Admin: 02/16/19 08:36 Dose: 325 mg Calcium Carbonate/Glycine (Tums) 1,000 mg PO Q2H PRN PRN Reason: Indigestion Last Admin: 02/15/19 09:02 Dose: 1,000 mg Citalopram Hydrobromide (Celexa) 20 mg PO DAILY [facility] Last Admin: 02/16/19 08:36 Dose: 20 mg Cyclobenzaprine HCl (Flexeril) 10 mg PO BEDTIME PRN PRN Reason: Sleep Last Admin: 02/13/19 20:54 Dose: 10 mg Diclofenac Sodium (Voltaren 1% Gel) 0 gm TOP BID PRN PRN Reason: joint pain Enoxaparin Sodium (Lovenox) 40 mg SUBCUT BEDTIME [facility] Last Admin: 02/15/19 20:43 Dose: 40 mg Levofloxacin 250 mg/ (Levofloxacin 500 mg) 750 mg PO BEDTIME [facility] Last Admin: 02/15/19 20:43 Dose: 750 mg Ondansetron HCl (Zofran) 4 mg IV Q4H PRN PRN Reason: Nausea/Vomiting Last Admin: 02/14/19 13:38 Dose: 4 mg Polyethylene Glycol (Miralax) 17 gm PO DAILY PRN PRN Reason: Constipation Prednisone (Prednisone) 20 mg PO BIDMEALS [facility] Stop: 02/16/19 17:01 Last Admin: 02/16/19 07:47 Dose: 20 mg Simvastatin (Zocor) 20 mg PO BEDTIME [facility] Last Admin: 02/15/19 20:43 Dose: 20 mg Sodium Chloride (Saline Flush) 10 ml FLUSH ASDIRECTED PRN PRN Reason: Keep Vein Open Tamsulosin HCl (Flomax) 0.4 mg PO DAILY [facility] Last Admin: 02/16/19 08:36 Dose: 0.4 mg Discontinued Medications Enoxaparin Sodium (Lovenox) 40 mg SUBCUT DAILY [facility] Last Admin: 02/12/19 22:52 Dose: 40 mg Sodium Chloride (Normal Saline) 1,000 mls @ 999 mls/hr IV .BOLUS ONE Stop: 02/12/19 20:48 Last Admin: 02/12/19 20:15 Dose: 999 mls/hr Sodium Chloride (Normal Saline) 1,000 mls @ 999 mls/hr IV .BOLUS ONE Stop: 02/12/19 21:02 Last Admin: 02/12/19 20:35 Dose: 999 mls/hr Piperacillin Sod/Tazobactam (Sod 4.5 gm/ Sodium Chloride) 100 mls @ 100 mls/hr IV ONETIME ONE Stop: 02/12/19 21:04 Last Admin: 02/12/19 20:37 Dose: 100 mls/hr Norepinephrine Bitartrate 4 mg (/ Dextrose/Water) 250 mls @ 7.5 mls/hr IV TITRATE [facility]; Protocol Last Titration: 02/13/19 15:24 Dose: 1 mcg/min, 3.75 mls/hr Levofloxacin/Dextrose 750 mg/ (Premix) 150 mls @ 100 mls/hr IV Q48H [facility] Last Admin: 02/12/19 23:29 Dose: 100 mls/hr Norepinephrine Bitartrate 4 mg (/ Dextrose/Water) 250 mls @ 7.5 mls/hr IV TITRATE [facility]; Protocol Last Titration: 02/13/19 18:21 Dose: 0 mcg/min, 0 mls/hr Piperacillin Sod/Tazobactam (Sod 3.375 gm/ Sodium Chloride) 50 mls @ 100 mls/ hr IV Q6H [facility] Last Admin: 02/13/19 05:14 Dose: Not Given Sodium Chloride (Normal Saline) 1,000 mls @ 125 mls/hr IV ASDIRECTED [facility] Last Admin: 02/13/19 03:18 Dose: 125 mls/hr Piperacillin Sod/Tazobactam (Sod 3.375 gm/ Sodium Chloride) 50 mls @ 100 mls/ hr IV Q6H [facility] Last Admin: 02/13/19 02:27 Dose: 100 mls/hr Levofloxacin/Dextrose 750 mg/ (Premix) 150 mls @ 100 mls/hr IV Q48H [facility] Piperacillin/Tazobactam/ (Dextrose 3.375 gm/ Premix) 50 mls @ 100 mls/hr IV Q6H [facility] Last Admin: 02/15/19 08:01 Dose: 100 mls/hr Magnesium Sulfate 2 gm/ Premix 50 mls @ 12.5 mls/hr IV Q6H [facility] Stop: 02/13/19 19:59 Last Admin: 02/13/19 15:48 Dose: 12.5 mls/hr Sodium Chloride (Normal Saline) 1,000 mls @ 75 mls/hr IV ASDIRECTED [facility] Last Admin: 02/14/19 02:33 Dose: 75 mls/hr Levofloxacin/Dextrose 750 mg/ (Premix) 150 mls @ 100 mls/hr IV Q24H [facility] Last Admin: 02/14/19 20:48 Dose: 100 mls/hr Sodium Chloride (Normal Saline) 1,000 mls @ 25 mls/hr IV ASDIRECTED [facility] Last Admin: 02/15/19 06:19 Dose: 25 mls/hr Methylprednisolone Sodium Succinate (Solu-Medrol) 62.5 mg IVPUSH ONETIME ONE Stop: 02/12/19 20:05 Last Admin: 02/12/19 20:38 Dose: 62.5 mg Methylprednisolone Sodium Succinate (Solu-Medrol) 40 mg IVPUSH Q6H [facility] Last Admin: 02/13/19 04:15 Dose: 40 mg Methylprednisolone Sodium Succinate (Solu-Medrol) 40 mg IVPUSH Q6H [facility] Last Admin: 02/14/19 04:33 Dose: 40 mg Potassium Chloride (Klor-Con M20) 40 meq PO ONETIME ONE Stop: 02/14/19 09:01 Last Admin: 02/14/19 09:00 Dose: 40 meq Prednisone (Prednisone) 20 mg PO ONETIME ONE Stop: 02/14/19 09:03 Last Admin: 02/14/19 09:22 Dose: 20 mg Sodium Chloride (Saline Flush) 10 ml FLUSH ASDIRECTED PRN PRN Reason: Keep Vein Open Last Admin: 02/12/19 20:41 Dose: 10 ml - Exam Quality Assessment: Denies: Supplemental Oxygen General: Reports: Alert, Oriented, Cooperative, No Acute Distress Lungs: Reports: Normal Respiratory Effort Cardiovascular: Reports: Regular Rate, Regular Rhythm GI/Abdominal Exam: Soft, No Distention Psy/Mental Status: Reports: Alert, Normal Affect
[2019-02-16 10:54] VITALS: PULSE 90
== END 2019-02-16 11:55 | disposition home or self-care (01) | DRG 871 ==
LOC: JP.ED 18:51 → UNDOADMIN 20:53 → JP.ICU 20:53 → JP.2SS 02-14 11:57 → JP.ICU 02-14 11:57 → JP.MS 02-14 11:57 → UNDODISIN 02-16 11:55
PROVIDERS: ADMIT Hospitalist; ATTEND Internal Medicine
PROC: 3E053XZ Introduction of Vasopressor into Peripheral Artery, Percutaneous Approach (ICD-10-PCS; principal; 2019-02-12)
DX: A41.9 Sepsis, unspecified organism (principal); J18.1 Lobar pneumonia, unspecified organism; J18.9 Pneumonia, unspecified organism; R65.21 Severe sepsis with septic shock; J96.21 Acute and chronic respiratory failure with hypoxia; N17.9 Acute kidney failure, unspecified; M34.9 Systemic sclerosis, unspecified; H54.7 Unspecified visual loss; H91.90 Unspecified hearing loss, unspecified ear; I25.10 Atherosclerotic heart disease of native coronary artery without angina pectoris; E78.00 Pure hypercholesterolemia, unspecified; I25.2 Old myocardial infarction; Z95.1 Presence of aortocoronary bypass graft; K21.9 Gastro-esophageal reflux disease without esophagitis; Z86.73 Personal history of transient ischemic attack (TIA), and cerebral infarction without residual deficits; Z86.010 Personal history of colon polyps; M19.90 Unspecified osteoarthritis, unspecified site; Z66 Do not resuscitate; J84.10 Pulmonary fibrosis, unspecified; Z88.2 Allergy status to sulfonamides; Z88.8 Allergy status to other drugs, medicaments and biological substances; Z79.82 Long term (current) use of aspirin; Z99.81 Dependence on supplemental oxygen; Z79.899 Other long term (current) drug therapy
CPT/HCPCS: 36415; 71045; 80053; 82803; 83605; 83880; 84145; 84484; 85025; 87040 ×2; 93005; 96361; 96374; 96375; 99285; J2543; J2930; J7030 ×3; 80048; 83735; 85027; 93010; 94640; 97116-GP; 97161-GP; A9270-GY; J1650; J1956; J2405; J2920; J3475; J7050; J7060; J7620-GY